=== PATIENT | female | born 1970 | race Caucasian/White ===

== ENCOUNTER 2025-01-26 08:46 | Inpatient (IN) ==
--- NOTE | 2025-01-20 20:38 | Anesthesiology Consultation ---
Date of Service January 20, 2025 Assessment & Plan (1) Encounter for pre-operative examination: - Exam and advise: Patient seen at [facility] 01/05/25 at surgeon request for possible upcoming cervical spine surgery (with hardware). Surgeon requested evaluation by anesthesia prior to officially booking surgery in order to determine if anesthesia felt that patient was not a candidate to be done at [facility] from their perspective. Patient reports history of apnea and cardiac arrest while under anesthesia. Indicates that most recent perioperative cardiac rest was remote (many years ago, back surgery) and she since had Right shoulder arthroscopy done at [facility] under [place] without issue (10/01/17; anesthesia records scanned into chart). Patient has received clearance for surgery and risk assessment provided from both cardiology and PCP (elaborated below). Case reviewed with Dr. Martinez. He feels patient okay to be scheduled at [facility]. Patient made aware; surgeon's office notified. - PCP visit (12/24/24): "She has a history of anesthesia complications, including episodes of decreased or stopped breathing during procedures, necessitating resuscitation. She also experienced a stroke two years ago, resulting in vision loss in her right eye, and has lost sensation in four fingers. A loop recorder was implanted due to a past episode of atrial fibrillation, scheduled for removal on January 04... Patient is high-risk for complications to surgery. Her cardiac risk index is high given up to a 7.9% risk but given her history of apnea and cardiac arrest under anesthesia I would estimate her risk to be much higher. However she currently has a functional capacity of around 4 Mets and reports that she had a stress test within the year that was normal. It is possible that most of her current risk would be from anesthesia and not directly from a cardiac standpoint. However she has also been undergoing evaluation with a loop recorder with Cardiology. Her other medical conditions like her diabetes seemed to be well-controlled enough to not cause any additional risk. Risk of the procedure itself would be intermediate. Patient's MRI shows significant spinal compression and the risk of not having her surgery also carries with it significant morbidity. I will defer her ultimate cardiac clearance to Cardiology and she reports she has a visit with them next week. If cleared by Cardiology I highly recommend consult with anesthesia to obtain their clearance as well and to potentially plan for ways to avoid previous cardiac arrest. Addendum: Patient has been seen and cleared by Cardiology for surgery. She is cleared with surgery but I highly recommend consult with anesthesia prior to surgery due to history of reaction to anesthesia." - Cardiology visit (12/29/24): "..Nonocclusive coronary artery disease ([facility] 2013), rheumatic mitral valve regurgitation, s/p ILR 08/03/2022 (after cerebellar infarction with unremarkable CAITIE).. Based on the RCRI perioperative risk calculator, using an ASA of 1, this patient's estimated risk for a myocardial infarction or cardiac arrest, intraoperatively or up to 30 days postop is 6.0%. Therefore, this patient is at low (less than 1%) risk for any rosalia-operative cardiac complications.. Patient will have upcoming echocardiogram performed for monitoring of her mitral valve regurgitation. She remains asymptomatic. This does not need to be done prior to spinal cord surgery.. Proceed to surgery.. Most recent ischemic evaluation was a negative stress test in 2022" - Cardiology note (01/01/25): "Patient is cleared for scheduled surgery per Dr. Daniels" - Check BSG DOS - GLP-1 medication instructions: Patient informed by PAT to stop 7 days prior to surgery- voiced understanding. DOS 01/26. Advised last dose to be 01/14. - Infectious disease screening: Per assessment on 01/18/25- No known recent infectious disease contacts or current infectious disease symptoms. Chart Review Chart Review: Acceptable Risk for Surgery (pending evaluation DOS) and Patient NOT seen in Pre Admission Testing History Surgery Operation Date: 01/26/25 12:25 Proposed Procedures p C6 Corpectomy, C4-C5 Anterior Cervical Discectomy and Fusion, C4-C7 Fusion, Spinal Cord Monitoring - Kadeem Villareal, Height/Weight Height: 5 ft 3 in Weight: 77.111 kg Allergies Allergy/AdvReac Type Severity Reaction Status Date / Time Carbapenems Allergy Intermediate Rash Verified 01/18/25 14:03 Cephalosporins Allergy Intermediate Rash Verified 01/18/25 14:03 metoprolol Allergy Intermediate Gastrointestinal Verified 01/18/25 14:03 Upset Penicillins Allergy Intermediate Hives, N/V Verified 01/18/25 14:03 Sulfa (Sulfonamide Allergy Intermediate Gastrointestinal Verified 01/18/25 14:03 Antibiotics) Upset, N/V amoxicillin Allergy Hives, N/V Verified 01/18/25 14:03 codeine Allergy Rash Verified 01/18/25 14:03 metformin Allergy Rash Verified 01/18/25 14:03 nitroglycerin Allergy Anaphylaxis, Verified 01/18/25 14:03 "Cardiac arrest" listed in [facility] records [id number] Reductase Allergy Verified 01/18/25 14:03 Inhibitor lisinopril AdvReac stroke Verified 01/18/25 14:03 morphine AdvReac Vomiting Verified 01/18/25 14:03 NSAIDS (Non-Steroidal AdvReac Heart Verified 01/18/25 14:03 Anti-Inflamma disease and HTN losartan AdvReac blind in Uncoded 01/18/25 14:03 rt eye Medications Home Medications Medication Instructions Recorded Confirmed Last Taken aspirin 81 mg tablet,delayed 81 mg PO QAM 09/26/22 01/18/25 Unknown release (Adult Low Dose Aspirin) lancets 30 gauge ([employer] [place] Del[place] #100 ea 10/03/22 02/11/23 Unknown Lancets) blood sugar diagnostic ([employer] [place] #100 ea 10/22/22 02/11/23 Unknown Verio test strips) blood-glucose meter ([employer] [place] #1 ea 10/22/22 02/11/23 Unknown Verio Flex Start kit) potassium chloride 20 mEq 20 meq PO BID #180 tabs 04/19/23 01/18/25 Unknown tablet,extended release gabapentin 300 mg capsule 300 mg PO TID 01/05/25 01/18/25 Unknown lisinopril 10 mg tablet 10 mg PO QAM 01/05/25 01/18/25 Unknown ondansetron 4 mg disintegrating 4 mg PO Q8H PRN Nausea 01/05/25 01/18/25 Unknown tablet Medical Marijuana 1 dose PO HS 01/18/25 01/18/25 Unknown levothyroxine 100 mcg tablet 100 mcg PO QAM 01/18/25 01/18/25 Unknown (Synthroid) semaglutide 0.25 mg or 0.5 mg (2 0.25 mg subcut WK 01/18/25 01/18/25 Unknown mg/3 mL) subcutaneous pen injector (Ozempic) Past Medical History Medical History Benign essential hypertension Per records Cervical pain (neck) numbness in fingers, ROM limited in all directions Chronic GERD Per records Coronary artery disease Nonocclusive CAD per 2013 cardiac cath (20-30% ostial LAD, 10-20% LCX, 30% prox ramus, 20% RCA) Per scanned records Diabetes mellitus just Ozempic Diastolic dysfunction Per records History of non-ST elevation myocardial infarction (NSTEMI) 2013 (Per scanned records) History of stroke 2022- cerebellar infarction > x3 total, unknown cause, one reason for possible due to lisinopril, neck issues? resulting blindness right eye medial retinal occulsion History of transesophageal echocardiography (CAITIE) Hypercholesterolemia Per records Hypothyroidism Per records Mitral valve regurgitation follows with Dr. Ayon with [facility] NSVT (nonsustained ventricular tachycardia) PCP records note, "A loop recorder was implanted due to a past episode of atrial fibrillation" > no other mention of a. fib hx per records (including available cardiac records); cardio notes loop recorder under NSVT hx cardiomyopathy Per records Past Family History Family History Mother Diabetes Heart disease Hypertension Lung disease COPD (chronic obstructive pulmonary disease) Father Diabetes Heart disease Hypertension Colonic polyp Stroke Brother Diabetes Gallbladder disease Heart disease Hypertension Lung disease Seizures Other Myocardial infarction Denies family history of Ovarian cancer Prostate cancer Alzheimer disease Bipolar disorder Dementia Depression Kidney disease Breast cancer Lung cancer Colorectal cancer Asthma Past Surgical History Surgical History (Updated 01/20/25 @ 20:36 by Maya Manzano) History of anesthesia reaction She has a history of anesthesia complications, including episodes of decreased or stopped breathing during procedures, necessitating resuscitation. >>*Exam and advise: Patient seen at [facility] 01/05/25 at surgeon request for possible upcoming cervical spine surgery (with hardware). Surgeon requested evaluation by anesthesia prior to officially booking surgery in order to determine if anesthesia felt that patient was not a candidate to be done at [facility] from their perspective. Patient reports history of apnea and cardiac arrest while under anesthesia. Indicates that most recent perioperative cardiac rest was remote (many years ago, back surgery) and she since had Right shoulder arthroscopy done at [facility] [place] without issue (10/01/17; anesthesia records scanned into chart). Patient has received clearance for surgery and risk assessment provided from both cardiology and PCP (elaborated below). Case reviewed with Dr. Martinez. He feels patient okay to be scheduled at [facility]. Patient made aware; surgeon's office notified. History of appendectomy 1979 History of back surgery Multiple (2006, 2008, 2009) > fusions in lumbar and thoracic History of cardiac cath 2013 > no stents History of section 1990, 2000 History of loop recorder removed at [facility] nothing ever discovered on it History of lumbar laminectomy History of shoulder surgery Right (2018) History of tubal ligation 2000 Hx of cholecystectomy 2000 Hx of surgical procedure [facility] 2006 > during a spinal tap, fell off bed and got a broken jaw/ broken back from the fall Social History Smoking Status: Current every day smoker Smoking cigarettes per day: 1/2 ppd > advised npo Do You Dip or Chew Tobacco: No Hx Alcohol Use: No Hx Substance Use: Yes substance use type: marijuana Substance Use Type Other:: med card at Lab Results Anesthesia Preop Results Results Anesthesia Widget: WBC 10.32 K/ul (4.8-10.8) 01/11/25 Hgb 17.0 g/dl (12.0-16.0) H 01/11/25 Hct 50.7 % (37.0-47.0) H 01/11/25 Plt 322 K/uL (130-400) 01/11/25 Na 138 mmol/L (136-145) 01/11/25 K 4.2 mmol/L (3.5-5.1) 01/11/25 Cl 102 mmol/L (98-107) 01/11/25 CO2 29 mmol/L (21-32) 01/11/25 BUN 12 mg/dl (6-23) 01/11/25 Creat 0.94 mg/dl (0.6-1.2) 01/11/25 Glucose Level 234 mg/dl (70-99(Fasting)) H 01/11/25 PT 10.8 Seconds (9.0-12.0) 01/11/25 PTT 27 Seconds (21-31) 01/11/25 INR 1.0 (0.9-1.1) 01/11/25 Urine Color Yellow 01/11/25 Urine Appearance Clear (Clear) 01/11/25 Urine pH 6.0 (4.5-7.5) 01/11/25 Urine Specific [place] 1.021 (1.000-1.030) 01/11/25 Urine Protein Negative (Negative) 01/11/25 Urine Glucose (UA) 2+ (Negative) H 01/11/25 Urine Ketones Trace (Negative) H 01/11/25 Urine Blood Negative (Negative) 01/11/25 Urine Nitrite Negative (Negative) 01/11/25 Urine Bilirubin Negative (Negative) 01/11/25 Urine Urobilinogen Negative (Negative) 01/11/25 Urine Leukocyte Esterase Negative (Negative) 01/11/25 Blood Type O Positive 01/11/25 Antibody Screen NEGATIVE 01/11/25 Testing Laboratory Results Urine culture (01/11/25): probable skin mary Electrocardiogram Date: 12/29/24 NSR at 85bpm. NS TWA. Echocardiogram Date: 05/14/23 EF 60-65%. Normal wall motion. Grade I DD. Mild AR. Moderate MR. RVSP/PASP <30mmhg. Stress Test Date: 2022 "negative stress test in 2022" per 12/29/24 cardiology office visit note (have not received official stress test report) Other Testing ILR device check Date: 08/07/24 "no episodes of tachy, pauses, bradycardia or AT/AF" per 12/29/24 cardiology office visit note (have not received official report).
[~2025-01-26 08:46] MED LIST: DEXAMETHASONE SOD INJ 4 MG/ML VIAL ONE; LIDOCAINE 2% 2 ML VIAL/AMP(20MG/ML) INFIL ONE; MIDAZOLAM HCL 1 MG/ML 2ML VIAL ONE; ONDANSETRON INJ 2 MG/ML 2 ML VIAL ONE; PROPOFOL IV EMULSION 10 MG/ML 20 ML VIAL IV ONE; ROCURONIUM BROMIDE 10 MG/ML 5 ML VIAL IV ONE
[2025-01-26] MEDS: LR 15ML/HR IV SCH (09:10)
[2025-01-26] MEDS: LR 60ML/HR IV SCH (09:16)
[2025-01-26] MEDS: VANCOMYCIN HCL 1,250 MG in SODIUM CHLORIDE 0.9% 250 ML IV SCH (09:16)
[2025-01-26] MEDS: GABAPENTIN 900 MG DOSE PO SCH (09:17)
[2025-01-26] MEDS: ACETAMINOPHEN 500 MG TAB PO SCH (09:17)
[2025-01-26] MEDS ORDERED: ATROPINE SULFATE 0.1 MG/ML 10ML SYR IV PRN (11:16)
[2025-01-26] MEDS ORDERED: DROPERIDOL 5 MG/2 ML VIAL IV PRN (11:16)
--- NOTE | 2025-01-26 11:27 | History & Physical Bridge Note ---
Date of Service January 26, 2025 History & Physical Bridge Note I have examined the patient, reviewed the History & Physical and in the interval since the performance of the History & Physical I have noted the following changes of clinical significance: no changes noted
--- NOTE | 2025-01-26 11:29 | History & Physical Report ---
Date of Service January 26, 2025 Assessment & Plan (1) Myelopathy concurrent with and due to spinal stenosis of cervical region: Plan: c5 corpectomy, C4-5 anterior cervical discectomy and fusion, C4-C7 fusion History of Present Illness Chief Complaint: Neck and bilateral arm pain Primary Care Provider: SANTI JONES This is a 54-year-old female who presents with severe neck and arm symptoms. She has evidence of severe cord compression is here for urgent decompression fusion. Allergies Allergy/AdvReac Type Severity Reaction Status Date / Time Carbapenems Allergy Intermediate Rash Verified 01/26/25 08:41 Cephalosporins Allergy Intermediate Rash Verified 01/26/25 08:41 metoprolol Allergy Intermediate Gastrointestinal Verified 01/26/25 08:41 Upset Penicillins Allergy Intermediate Hives, N/V Verified 01/26/25 08:41 Sulfa (Sulfonamide Allergy Intermediate Gastrointestinal Verified 01/26/25 08:41 Antibiotics) Upset, N/V amoxicillin Allergy Hives, N/V Verified 01/26/25 08:41 codeine Allergy Rash Verified 01/26/25 08:41 metformin Allergy Rash Verified 01/26/25 08:41 nitroglycerin Allergy Anaphylaxis, Verified 01/26/25 08:41 "Cardiac arrest" listed in S records [id number] Reductase Allergy Verified 01/26/25 08:41 Inhibitor lisinopril AdvReac stroke Verified 01/26/25 08:41 morphine AdvReac Vomiting Verified 01/26/25 08:41 NSAIDS (Non-Steroidal AdvReac Heart Verified 01/26/25 08:41 Anti-Inflamma disease and HTN losartan AdvReac blind in Uncoded 01/26/25 08:41 rt eye Home Medications Medication Instructions Recorded Confirmed Type aspirin 81 mg tablet,delayed 81 mg PO QAM 09/26/22 01/26/25 History release (Adult Low Dose Aspirin) lancets 30 gauge ([employer] Delica #100 ea 10/03/22 02/11/23 Rx Lancets) blood sugar diagnostic (OneTouch #100 ea 10/22/22 02/11/23 Rx Verio test strips) blood-glucose meter ([employer] #1 ea 10/22/22 02/11/23 Rx Verio Flex Start kit) potassium chloride 20 mEq 20 meq PO BID #180 tabs 04/19/23 01/26/25 Rx tablet,extended release gabapentin 300 mg capsule 300 mg PO TID 01/05/25 01/26/25 History lisinopril 10 mg tablet 10 mg PO QAM 01/05/25 01/26/25 History ondansetron 4 mg disintegrating 4 mg PO Q8H PRN Nausea 01/05/25 01/26/25 History tablet Medical Marijuana 1 dose PO HS 01/18/25 01/26/25 History levothyroxine 100 mcg tablet 100 mcg PO QAM 01/18/25 01/26/25 History (Synthroid) semaglutide 0.25 mg or 0.5 mg (2 0.25 mg subcut WK 01/18/25 01/26/25 History mg/3 mL) subcutaneous pen injector (Ozempic) Past Med/Surg History Problem List (Updated 01/26/25 @ 11:29 by Kadeem Villarael DO) 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 Ayon with [facility] NSVT (nonsustained ventricular tachycardia) PCP records note, "A loop recorder was implanted due to a past episode of atrial fibrillation" > no other mention of a. fib hx per records (including available cardiac records); cardio notes loop recorder under NSVT hx History of stroke 2022- cerebellar infarction > x3 total, unknown cause, one reason for possible due to lisinopril, neck issues? resulting blindness right eye medial retinal occulsion History of non-ST elevation myocardial infarction (NSTEMI) 2013 (Per scanned records) Diastolic dysfunction Per records cardiomyopathy Per records Coronary artery disease Nonocclusive CAD per 2014 cardiac cath (20-30% ostial LAD, 10-20% LCX, 30% prox ramus, 20% RCA) Per scanned records Chronic GERD Per records Hypothyroidism Per records Benign essential hypertension Per records Hypercholesterolemia Per records Diabetes mellitus just Ozempic Surgical History History of anesthesia reaction She has a history of anesthesia complications, including episodes of decreased or stopped breathing during procedures, necessitating resuscitation. >>*Exam and advise: Patient seen at [facility] 01/05/25 at surgeon request for possible upcoming cervical spine surgery (with hardware). Surgeon requested evaluation by anesthesia prior to officially booking surgery in order to determine if anesthesia felt that patient was not a candidate to be done at [facility] from their perspective. Patient reports history of apnea and cardiac arrest while under anesthesia. Indicates that most recent perioperative cardiac rest was remote (many years ago, back surgery) and she since had Right shoulder arthroscopy done at [facility] under [place] without issue (10/01/17; anesthesia records scanned into chart). Patient has received clearance for surgery and risk assessment provided from both cardiology and PCP (elaborated below). Case reviewed with Dr. Martienz. He feels patient okay to be scheduled at [facility]. Patient made aware; surgeon's office notified. History of lumbar laminectomy Hx of surgical procedure [facility] [place] > during a spinal tap, fell off bed and got a broken jaw/ broken back from the fall History of loop recorder removed at [facility] 01/11/25 [facility] > nothing ever discovered on it History of cardiac cath 2013 > no stents History of shoulder surgery Right (2018) History of back surgery Multiple (2006, 2008, 2008) > fusions in lumbar and thoracic History of tubal ligation 2000 History of section 2000 Hx of cholecystectomy 2000 History of appendectomy 1979 Family History Mother Diabetes Heart disease Hypertension Lung disease COPD (chronic obstructive pulmonary disease) Father Diabetes Heart disease Hypertension Colonic polyp Stroke Brother Diabetes Gallbladder disease Heart disease Hypertension Lung disease Seizures Other Myocardial infarction Denies family history of Ovarian cancer Prostate cancer Alzheimer disease Bipolar disorder Dementia Depression Kidney disease Breast cancer Lung cancer Colorectal cancer Asthma Social History (Updated 09/26/22 @ 11:40 by ANN Baptiste) Smoking Status: Current every day smoker Tobacco Type: Cigarettes Age Started Using Tobacco: 26; packs per day: 0.50; Cigarettes Per Day: 1/2 ppd > advised npo; Second Hand Exposure: No; Do You Dip or Chew Tobacco: No; Tobacco Cessation Education Requested by Patient: No Hx Alcohol Use: No Hx Substance Use: Yes Prescribed Medications: Marijuana Substance Use Type Other:: med card at Preferred Language: Barbadian Communication Ability: Effective Visual Impairment: Blindness Hearing Ability: Normal Reptile Farmer Required: No Beliefs That Will Affect Care: None marital status: Legally Current Living Situation: Alone current occupational status: disabled How many Children do You have: 2 Other Information That Helps Us Care for You: No Feels Safe at Home: Yes Safety Concerns: Feels Safe At This Time Childhood Exposure to Second-Hand Smoke: Yes Dental Care, Regularly: No Seatbelt Use: always Sunscreen Use: Yes Assistive Devices: Glasses Physical Exam Physical Exam: Patient is alert and oriented Heart regular rhythm Lungs clear Results & Data Results & Data Vital Signs (Past 12 Hours) Vital Signs Temp Pulse Resp BP Pulse Ox O2 Del Method 01/26/25 08:51 36.8 C 82 20 171/90 H 96 Room Air
[2025-01-26] MEDS ORDERED: KETAMINE HCL 10MG/ML SYR ONE (12:07)
[2025-01-26] MEDS ORDERED: HYDROmorphone INJ 2 MG/ML SYR/VIAL ONE (12:08)
[2025-01-26] MEDS ORDERED: DEXAMETHASONE SOD INJ 4 MG/ML VIAL ONE (12:11)
[2025-01-26] MEDS ORDERED: diphenhydrAMINE 50 MG/ML VIAL ONE (12:34)
[2025-01-26] MEDS ORDERED: ESMOLOL HCL INJ 10 MG/ML 10ML VIAL IV ONE (12:43)
[2025-01-26] MEDS ORDERED: SUGAMMADEX SODIUM 200 MG/2 ML VIAL IV ONE (13:43)
[2025-01-26] MEDS: ceFAZolin 330 MG/ML 1 GM VIAL ONE (13:43)
[2025-01-26] MEDS: FLOSEAL HEMOSTATIC MATRIX 10ML TOP ONE (13:43)
--- NOTE | 2025-01-26 13:48 | Operative Report ---
Post Operative Report Pre & Post Diagnosis Operation Date: 01/26/25 10:05 Pre-Op Diagnosis: Myelopathy concurrent with and due to spinal stenosis of cervical region Post-Op Diagnosis: Myelopathy concurrent with and due to spinal stenosis of cervical region I identified the patient and participated in the time-out.: Yes Procedure Operation Date: 01/26/25 10:05 Actual Procedures #1 anterior cervical corpectomy of C5 with bilateral foraminotomies. #2 anterior cervical arthrodesis C4-C6. #3 placement of Spira 23 mm cage C4-C6. #4 placement locally harvested morselized autograft combined with os design bone graft and interbody cage. #5 application of K2 and plate screws from C4-C6. Surgeon Kadeem Villareal, Cartography Technician Mana Kerr Estimated Blood Loss 50 Findings Consistent with Post-Op Diagnosis Specimens None Indications This is a 54-year-old female who presents with much diagnosis is here for surgical decompression. Description of Procedure Patient was met with identified informed consent obtained. Patient was then taken to the operative suite underwent intubation placed in the supine position on the Charles table the head in the [place] pumper head. All bony promises well-padded eyes inspected to ensure no external pressure placed upon them. This point the anterior cervical spine was prepped and draped in a sterile fashion. With the assistance of fluoroscopy identified the C5-C6 disc space and a transverse incision was placed along the right anterior aspect of the cervical spine overlying his region. Blunt dissection with the assistance of Bovie cautery was formed down to and exposing the C4-5 and C5-6 disc spaces. Self- retaining retractors placed. Then performed a complete discectomy of C4-C5 out to the uncovertebral joints bilaterally followed by C5-C6. [place] distracting pins were then placed in C4 and C6 to distract across the C5 vertebral body. A complete corpectomy of C5 was then performed including bilateral foraminotomies and removing all disc fragments adhered to the canal. I undercut the superior endplate of C6 to remove all disc material that had migrated posteriorly to the body of C6. My goal is to avoid a C6-C7 fusion if possible as this disc is very healthy on imaging and alignment. After complete decompression the endplates were burred to subcortical bleeding bone and a 23 mm spiral cage filled with os design bone graft and local autograft tapped in position. Distracting apparatus was removed. Indicated to them plate and screws applied with the assistance of fluoroscopy. The incision was then copiously irrigated explored to ensure no damage to surrounding structures or remaining bleeding. 10 round JEMIMA drain inserted. The incision was then closed with 2 Vicryl in the fashion of 4 Monocryl for final skin closure. Steri-Strips sterile dressing placed. Patient waken taken to PACU in stable condition. Please note spinal cord monitoring was utilized out the procedure no changes noted. Mana Kerr was present at the entire procedure involved the patient positioning complex portion of the surgery and final skin closure. I attest to the content of the Intraoperative Record and any orders documented therein. Any exceptions are noted below.
[2025-01-26] MEDS ORDERED: NALOXONE HCL 0.4 MG/1 ML VIAL/CARP IV PRN (14:06)
[2025-01-26] MEDS ORDERED: MAGNESIUM HYDROXIDE SUSP 30 ML UDC PO PRN (14:06)
[2025-01-26] MEDS ORDERED: PROMETHAZINE 12.5 MG/50.5 ML BAG IV PRN (14:06)
[2025-01-26] MEDS ORDERED: dexAMETHasone 8 MG in SYRINGE 0 ML IV PRN (14:06)
[2025-01-26] MEDS ORDERED: ALUMINUM/MAGNESIUM SUSP 30 ML UDC PO PRN (14:06)
[2025-01-26] MEDS ORDERED: DO NOT ADMINISTER PNEUMOCOCCAL VACCINE PRN (14:06)
[2025-01-26] MEDS ORDERED: RACEPINEPHRINE 2.25% NEBU SOLN 0.5 ML VIAL INH PRN (14:06)
[2025-01-26] MEDS ORDERED: LORazepam 0.5 MG TAB PO PRN (14:06)
[2025-01-26] MEDS ORDERED: DO NOT ADMINISTER FLU VACCINE PRN (14:06)
[2025-01-26] MEDS ORDERED: METOCLOPRAMIDE HCL INJ 5 MG/ML 2 ML VIAL IV PRN (14:06)
[2025-01-26] MEDS ORDERED: FAMOTIDINE 20 MG TAB PO PRN (14:06)
[2025-01-26] MEDS ORDERED: PHARMACY GLYCEMIC MGMT CONSULT PRN (14:06)
[2025-01-26] MEDS ORDERED: ONDANSETRON INJ 2 MG/ML 2 ML VIAL IV PRN (14:06)
[2025-01-26] MEDS ORDERED: ACETAMINOPHEN 1,000 MG/100 ML VIAL IV PRN (14:06)
[2025-01-26] MEDS ORDERED: ONDANSETRON 4 MG OD TAB PO PRN (14:06)
[2025-01-26] MEDS ORDERED: SOD PHOSPHATE/SOD BIPHOSPHATE ENEMA 132 ML BTL PR PRN (14:06)
[2025-01-26] MEDS: ONDANSETRON INJ 2 MG/ML 2 ML VIAL IV PRN (14:39)
[2025-01-26] MEDS: HYDROmorphone INJ 2 MG/ML SYR/VIAL IV PRN (14:40)
[2025-01-26] MEDS ORDERED: CARBOHYDRATES FOR HYPOGLYCEMIA PO PRN (14:45)
[2025-01-26] MEDS ORDERED: GLUCOSE 10 TAB/TUBE PO PRN (14:45)
[2025-01-26] MEDS ORDERED: GLUCAGON FOR INJ 1 MG VIAL SQ PRN (14:45)
[2025-01-26] MEDS ORDERED: DEXTROSE 50% 50 ML SYRINGE IV PRN (14:45)
[2025-01-26] MEDS ORDERED: GLUCOSE 40% GEL 15 GM TUBE PO PRN (14:45)
--- NOTE | 2025-01-26 14:45 | Fluoroscopy Report ---
FL cervical 2-3V CLINICAL HISTORY: C4-C7 ACDF COMPARISON STUDY: None FLUOROSCOPY TIME: 21 seconds FLUOROSCOPY IMAGES: 3 EXPOSURE DOSE: 4 mGy FINDINGS: Fluoroscopy was provided for lower cervical metallic fusion. IMPRESSION: Intraoperative fluoroscopy. ACT 112: Negative or not required by law. Electronically signed by: Robert Tidwell M.D. 01/26/2025 2:44 PM
--- NOTE | 2025-01-26 14:46 | Pharmacy Report ---
Pharmacy Glycemic Short Note 2 - Date of Service January 26, 2025 - Glycemic Short BSG Results (Last 24 hours): 01/26/25 01/26/25 08:46 14:21 POC Glucose 255 H 201 H OUTPATIENT ANTIDIABETIC REGIMEN: * Semaglutide 0.5 mg SC weekly HbA1c: reordered for 01/27/25 ASSESSMENT: * TW is a 54 year old female POD #0 s/p spinal surgery * Received 8 mg IV dexamethasone x 2 doses in OR * Ordered dexamethasone 8 mg IV q8h postoperatively * Preop blood sugar of 255 mg/dL and postop blood sugar of 201 mg/dL PLAN FOR INPATIENT GLYCEMIC CONTROL: * Hold outpatient oral diabetes medications * Basal insulin * Lantus 30 units SC x 1 * Lantus 0-10 units SC HS (see EHR for details) * Bolus insulin * NovoLog per scale ACHS or Q6hrs while NPO * Goal Range: Low 110 mg/dL - High 140 mg/dL * Correction Factor: 20 mg/dL/unit * Nutritional / Prandial insulin per carb ratio of 1 unit per 7 grams CHO consumed
--- NOTE | 2025-01-26 15:14 | Anesthesiology Progress Note ---
Date of Service January 26, 2025 Anesthesia Post Procedure Vital Signs Vital Signs: Temp Pulse Pulse Resp BP Pulse Ox O2 Del Method 01/26/25 15:05 80 15 145/74 H 96 Nasal Cannula 01/26/25 14:55 80 15 150/73 H 96 Nasal Cannula 01/26/25 14:45 81 15 146/77 H 96 Oxymask 01/26/25 14:35 80 15 147/78 H 96 Oxymask 01/26/25 14:25 82 15 152/88 H 95 Oxymask 01/26/25 14:18 36.1 C L 89 15 159/84 H 94 Oxymask 01/26/25 08:51 36.8 C 82 20 171/90 H 96 Room Air O2 Flow Rate 01/26/25 15:05 4 01/26/25 14:55 4 01/26/25 14:45 5 01/26/25 14:35 5 01/26/25 14:25 5 01/26/25 14:18 5 01/26/25 08:51 Pain Intensity Upper Neck: Pain Intensity: 6 Transfer of Care Handoff Completed per policy Notes Mental Status: alert / awake / arousable Patient Amnestic to Procedure: Yes Nausea / Vomiting: adequately controlled Pain: adequately controlled Airway Patency, RR, SpO2: stable & adequate BP & HR: stable & adequate Hydration State: stable & adequate Anesthetic Complications: no major complications apparent and Pt Satisfied with anesthetic care
[2025-01-26] MEDS: INSULIN ASPART PER UNIT CHARGE SC SCH (16:10)
[2025-01-26] MEDS: CeleBREX 200 MG CAP PO SCH (16:13)
[2025-01-26] MEDS: LACTATED RINGER'S 1,000 ML IV SCH (16:26)
[2025-01-26] MEDS: GABAPENTIN 300 MG CAP PO STA (16:39)
--- NOTE | 2025-01-26 17:06 | Hospitalist Consultation ---
Date of Consultation January 26, 2025 Assessment & Plan (1) Myelopathy concurrent with and due to spinal stenosis of cervical region: Carly is a 53-year-old female with a past medical history of cardiomyopathy, nonobstructive CAD, CVA, cholecystectomy, asthma who presented for scheduled cervical spinal surgery 2/2 cervical spinal stenosis with myelopathy. We are consulted for postoperative management Cervical spinal stenosis s/p surgical intervention 01/26/2025 s/p cervical corpectomy, arthrodesis, cage placement and plate/screw fixation 50 cc estimated blood loss, no complications Reviewed VTE risk.? Increased risk with tobacco use, BMI, and possible prior thrombus although no DVT/PE. She is also at increased risk of bleeding complications with her cervical surgery. Reviewed with primary team, will have evaluation of drains bleeding risk morning of 01/27 and likely start Lovenox 30- 40 mg subcu daily for prevention when bleeding risk is acceptable. Immediately postop risk of bleeding complications outweighs benefit Nonobstructive CAD, NSVT, MVR, history of nonischemic cardiomyopathy Cardiac cath 2013 with nonocclusive disease Echo 2022: EF 60 to 65%, grade 1 diastolic dysfunction. Moderate MR. Aspirin 81 mg daily continued Resume lisinopril 01/27 Hx NSVT, Syncope Had an episode of NSVT for which she was trialed on a beta-yfn but was intolerant of this and was discontinued. Had a loop recorder placed in 2022. This was reviewed at cardiology visit 12/2024 no episodes of tacky arrhythmia/pauses/bradycardia/AT/AF per cardiology report. Loop recorder to be removed. Was recommended to hold aspirin 3 days prior to procedure otherwise continue medications with low perioperative risk. Aspirin continued No recurrent symptoms. If concern for syncope/presyncope, or tachycardia develop transfer to telemetry Preop EKG: Normal sinus rhythm, QTc 433, no territorial ST/T wave acute changes Hyperlipidemia Intolerance to statins, Zetia, PCSK9 inhibitors Continue follow-up with cardiology and outpatient management. LDL is above goal History of syncope S/p loop recorder f/u with cardiovascular services. Had been treated transiently with a beta-yfn but felt poorly, this was started for a history of NSVT. Was discontinued due to intolerance. 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 Patient reports that she has had extensive follow-up and workup, was not recommended for blood thinners CTA of the head and neck has not shown any hemodynamically significant st enoses Hypothyroidism Continue Synthroid Type II DM Hyperglycemic following surgery and received dexamethasone 8 mg. BSG 279. Initially refused insulin, discussed risk of poor wound healing and infection with high blood sugars at bedside. Also discussed risk of increasing blood sugars w/ dexamethasone tx. On shared decision making she is agreeable to insulin while inpatient. Glycemic consult following Currently on Lantus 0-10 units at bedtime, SSI goal [id number], CF 20, CR 1-7 Adjustment per placement consult Heart healthy, DM2 diet A1c pending Home semaglutide held DVT prophylaxis: SCDs, chemicalppx when bleeding risk acceptable Diet: Heart Healthy, DM2 (2) History of stroke: (3) Diabetes mellitus: (4) Hypothyroidism: (5) Benign essential hypertension: (6) Chronic GERD: (7) Coronary artery disease: History of Present Illness Attending Physician: Kadeem Villareal, DO History of Present Illness Carly is a 53-year-old female with a past medical history of cardiomyopathy, nonobstructive CAD, CVA, cholecystectomy, asthma who presented for scheduled cervical spinal surgery 2/2 cervical spinal stenosis with myelopathy. We are consulted for postoperative management Tali is seen at the bedside with her present. She was having bilateral upper extremity paresthesias and arm weakness that led to her decompression surgery. She feels her strength is better postoperatively. She does have some pain at her surgical site which radiates slightly to each side towards her shoulders. Denies sensory loss. She denies chest pain chest pressure and shortness of breath. Does have a little bit of a sore throat following extubation. Denies wheezing, difficulty breathing, no difficulty swallowing secretions. No wheezing, she is a smoker. Declines nicotine patch. Reports good exertional capacity with no recent syncope. Was doing well enough that her loop recorder was removed. No issues since this. Loop recorder site is well-healing. Declined insulin while inpatient as she has multiple allergies and did not want to risk another 1. Did discuss the increased rates of poor wound healing and postoperative infection with poor glycemic control following surgery. Shared risk/benefits, she is agreeable to basal bolus insulin while inpatient although does not wish to be discharged on this. She has a history of multiple strokes, and right vision loss due to this. She was noted to have a AV thrombus in 2021 which was not seen on repeat echocardiogram and follow-up. Reports she has followed and has extensive workup with [facility] [place] and cardiology for this, and reports she does not need and she does not take any blood thinners. She takes a daily aspirin. Denies history of DVT/PE. CTA of her head and neck did not show any significant stenoses associated with her CVA. Medical History: Reviewed Medications: Reviewed Surgical History: Reviewed Family history: Reviewed Allergies: Reviewed, extensive allergies as noted in history. Anaphylactic allergy to nitroglycerin. Hives to penicillin, cephalosporins, carbapenems. Nausea vomiting team morphine and codeine. Intolerant to statins in the past. Social History: Tobacco use Code Status: Full code Allergies Allergy/AdvReac Type Severity Reaction Status Date / Time Carbapenems Allergy Intermediate Rash Verified 01/26/25 08:41 Cephalosporins Allergy Intermediate Rash Verified 01/26/25 08:41 metoprolol Allergy Intermediate Gastrointestinal Verified 01/26/25 08:41 Upset Penicillins Allergy Intermediate Hives, N/V Verified 01/26/25 08:41 Sulfa (Sulfonamide Allergy Intermediate Gastrointestinal Verified 01/26/25 08:41 Antibiotics) Upset, N/V amoxicillin Allergy Hives, N/V Verified 01/26/25 08:41 codeine Allergy Rash Verified 01/26/25 08:41 metformin Allergy Rash Verified 01/26/25 08:41 nitroglycerin Allergy Anaphylaxis, Verified 01/26/25 08:41 "Cardiac arrest" listed in [facility] records [id number]-[id number]-ZsU Reductase Allergy Unknown Verified 01/26/25 14:23 Inhibitor lisinopril AdvReac stroke Verified 01/26/25 08:41 losartan AdvReac Unknown Verified 01/26/25 14:23 morphine AdvReac Vomiting Verified 01/26/25 08:41 NSAIDS (Non-Steroidal AdvReac Heart Verified 01/26/25 08:41 Anti-Inflamma disease and HTN Home Medications Medication Instructions Recorded Confirmed Type aspirin 81 mg tablet,delayed 81 mg PO QAM 09/26/22 01/26/25 History release (Adult Low Dose Aspirin) lancets 30 gauge (Cass ArtTouch Delcale #100 ea 03/29/23 08/07/23 Rx Lancets) blood sugar diagnostic (OneTouch #100 ea 10/22/22 02/11/23 Rx Verio test strips) blood-glucose meter (OneTouch #1 ea 10/22/22 02/11/23 Rx Verio Flex Start kit) potassium chloride 20 mEq 20 meq PO BID #180 tabs 04/19/23 01/26/25 Rx tablet,extended release gabapentin 300 mg capsule 300 mg PO TID 01/05/25 01/26/25 History lisinopril 10 mg tablet 10 mg PO QAM 01/05/25 01/26/25 History ondansetron 4 mg disintegrating 4 mg PO Q8H PRN Nausea 01/05/25 01/26/25 History tablet Medical Marijuana 1 dose PO HS 01/18/25 01/26/25 History levothyroxine 100 mcg tablet 100 mcg PO QAM 01/18/25 01/26/25 History (Synthroid) semaglutide 0.25 mg or 0.5 mg (2 0.25 mg subcut WK 01/18/25 01/26/25 History mg/3 mL) subcutaneous pen injector (Ozempic) Patient History Medical History (Updated 01/26/25 @ 11:29 by Kadeem Villareal DO) History of transesophageal echocardiography ([facility]) Cervical pain (neck) numbness in fingers, ROM limited in all directions Mitral valve regurgitation follows with Dr. Ayon with [facility] NSVT (nonsustained ventricular tachycardia) PCP records note, "A loop recorder was implanted due to a past episode of atrial fibrillation" > no other mention of a. fib hx per records (including available cardiac records); cardio notes loop recorder under NSVT hx History of stroke 2022- cerebellar infarction > x3 total, unknown cause, one reason for possible due to lisinopril, neck issues? resulting blindness right eye medial retinal occulsion History of non-ST elevation myocardial infarction (NSTEMI) 2013 (Per scanned records) Diastolic dysfunction Per records cardiomyopathy Per records Coronary artery disease Nonocclusive CAD per 2014 cardiac cath (20-30% ostial LAD, 10-20% LCX, 30% prox ramus, 20% RCA) Per scanned records Chronic GERD Per records Hypothyroidism Per records Benign essential hypertension Per records Hypercholesterolemia Per records Diabetes mellitus just Ozempic Surgical History History of anesthesia reaction She has a history of anesthesia complications, including episodes of decreased or stopped breathing during procedures, necessitating resuscitation. >>*Exam and advise: Patient seen at [facility] 01/05/25 at surgeon request for possible upcoming cervical spine surgery (with hardware). Surgeon requested evaluation by anesthesia prior to officially booking surgery in order to determine if anesthesia felt that patient was not a candidate to be done at [facility] from their perspective. Patient reports history of apnea and cardiac arrest while under anesthesia. Indicates that most recent periope rative cardiac rest was remote (many years ago, back surgery) and she since had Right shoulder arthroscopy done at [facility] under [place] without issue (10/01/17; anesthesia records scanned into chart). Patient has received clearance for surgery and risk assessment provided from both cardiology and PCP (elaborated below). Case reviewed with Dr. Martinez. He feels patient okay to be scheduled at [facility]. Patient made aware; surgeon's office notified. History of lumbar laminectomy Hx of surgical procedure [facility] 2006 > during a spinal tap, fell off bed and got a broken jaw/ broken back from the fall History of loop recorder removed at [facility] 01/11/25 [facility] > nothing ever discovered on it History of cardiac cath 2013 > no stents History of shoulder surgery Right (2018) History of back surgery Multiple (2006, 2008, 2008) > fusions in lumbar and thoracic History of tubal ligation 2000 History of section 1990, 2000 Hx of cholecystectomy 2000 History of appendectomy 1979 Family History Mother Diabetes Heart disease Hypertension Lung disease COPD (chronic obstructive pulmonary disease) Father Diabetes Heart disease Hypertension Colonic polyp Stroke Brother Diabetes Gallbladder disease Heart disease Hypertension Lung disease Seizures Other Myocardial infarction Denies family history of Ovarian cancer Prostate cancer Alzheimer disease Bipolar disorder Dementia Depression Kidney disease Breast cancer Lung cancer Colorectal cancer Asthma Social History (Updated 09/26/22 @ 11:40 by ANN Baptiste) Smoking Status: Current every day smoker Tobacco Type: Cigarettes Age Started Using Tobacco: 26; packs per day: 0.50; Cigarettes Per Day: 1/2 ppd > advised npo; Second Hand Exposure: No; Do You Dip or Chew Tobacco: No; Tobacco Cessation Education Requested by Patient: No Hx Alcohol Use: No Hx Substance Use: Yes Prescribed Medications: Marijuana Substance Use Type Other:: med card at HS Preferred Language: Macedonian Communication Ability: Effective Visual Impairment: Blindness Hearing Ability: Normal 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 NAD. Cooperative. HEENT: Collar in place. Decreased visual acuity in the right eye. Pupils equal and reactive. Hearing grossly intact. Anterior neck dressing in place, C/D/I. JEMIMA drain in place with about 50 cc of sanguinous material. Slight swelling of midline upper lip. Uvula is midline. No tongue swelling. Pulm: CTAB A&P. -wheezes, -rales, -rhonchi. Symmetrical chest rise. No increased work of breathing. No respiratory distress. Cardiac: RRR, -mrg. Radial pulses intact and symmetrical. Prior loop recorder site s/p removal is well-healing, surgical incision C/C/ Abdominal: Nontender, nondistended, soft. BS present. Extremities: Ankle dorsiflexion/plantarflexion 5/5, sensation to soft touch in feet intact. 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 Does have some pain radiating from surgical site to her proximal shoulder bilaterally, present prior to surgical intervention. Strength in her upper extremities is qualitatively improved compared to preoperatively. Patient Results & Data Results & Data Vital Signs (Past 12 Hours) Vital Signs Temp Pulse Pulse Resp BP Pulse Ox O2 Del Method 01/26/25 16:45 36.6 C 82 18 124/78 98 Nasal Cannula 01/26/25 16:17 93 H 16 96 Nasal Cannula 01/26/25 16:15 36.9 C 87 18 125/77 96 Nasal Cannula 01/26/25 15:45 Nasal Cannula 01/26/25 15:45 36.6 C 88 16 142/85 H 96 Nasal Cannula 01/26/25 15:25 83 15 132/61 96 Nasal Cannula 01/26/25 15:15 36.2 C L 82 15 129/82 96 Nasal Cannula 01/26/25 15:05 80 15 145/74 H 96 Nasal Cannula 01/26/25 14:55 80 15 150/73 H 96 Nasal Cannula 01/26/25 14:45 81 15 146/77 H 96 Oxymask 01/26/25 14:35 80 15 147/78 H 96 Oxymask 01/26/25 14:25 82 15 152/88 H 95 Oxymask 01/26/25 14:18 36.1 C L 89 15 159/84 H 94 Oxymask 01/26/25 08:51 36.8 C 82 20 171/90 H 96 Room Air O2 Flow Rate 01/26/25 16:45 4 01/26/25 16:17 4 01/26/25 16:15 4 01/26/25 15:45 4 01/26/25 15:45 4 01/26/25 15:25 4 01/26/25 15:15 4 01/26/25 15:05 4 01/26/25 14:55 4 01/26/25 14:45 5 01/26/25 14:35 5 01/26/25 14:25 5 01/26/25 14:18 5 01/26/25 08:51 PG Care Time/CCT Total # of Minutes Spent Total Time Spent with Patient: Total time spent is greater than 50% in coordination of care (as documented) at patient's floor/unit and/or counseling patient: Coding Level of Care Code 35734 IN/OBS CONSULT LVL 5,80M Diagnoses Myelopathy concurrent with and due to spinal stenosis of cervical region M48.02; G99.2 History of stroke Z86.73 Diabetes mellitus E11.9 Hypothyroidism E03.9 Benign essential hypertension I10 Chronic GERD K21.9 Coronary artery disease I25.10
[2025-01-26] MEDS: LANTUS PER UNIT CHARGE SC ONE (17:10)
[2025-01-26] MEDS: HYDROmorphone INJ 0.5 MG/0.5 ML SYR IV PRN (18:43)
[2025-01-26] MEDS: CLINDAMYCIN/D5W 600 MG/50 ML BAG IV SCH (19:38)
[2025-01-26] MEDS: DOCUSATE SODIUM/SENNA 50/8.6MG TAB PO SCH (20:21)
[2025-01-26] MEDS: POTASSIUM CHLORIDE CRTAB 20 MEQ TABCR PO SCH (20:21)
[2025-01-26] MEDS: GABAPENTIN 300 MG CAP PO SCH (20:21)
[2025-01-26] MEDS: LANTUS PER UNIT CHARGE SC SCH (20:40)
[2025-01-26] MEDS ORDERED: NON-FORMULARY MEDICATION (Medical Marijuana 1 EA) PO SCH (21:00)
[2025-01-26] MEDS: dexAMETHasone 8 MG in SYRINGE 0 ML IV SCH (21:04)
[2025-01-26] MEDS: HYDROmorphone INJ 1 MG/ML SYRINGE IV PRN (21:53)
[2025-01-26] MEDS: diphenhydrAMINE Capsule 25 MG CAP PO PRN (21:53)
[2025-01-27] MEDS: POLYETHYLENE (MIRALAX) 17 GM PACK PO SCH (05:23)
[2025-01-27] MEDS: LEVOTHYROXINE SODIUM 100 MCG TABLET PO SCH (05:25)
[2025-01-27 07:39] LABS: Hemoglobin A1C 8.5 % (4.5-5.6)
[2025-01-27] MEDS: ACETAMINOPHEN 500 MG TAB PO PRN (07:43)
[2025-01-27] MEDS: INSULIN HUMAN REGULAR PER UNIT 8 UNITS in SYRINGE 7.92 ML IV ONE (08:19)
[2025-01-27] MEDS: LANTUS PER UNIT CHARGE SC ONE (08:19)
--- NOTE | 2025-01-27 08:25 | Orthopedic Progress Note ---
Date of Service January 27, 2025 Assessment & Plan (1) Myelopathy concurrent with and due to spinal stenosis of cervical region: Plan: At this time I am going to maintain the JEMIMA drain another 24 hours. There is been some discussion regarding Lovenox. I am concerned that that decompression is quite extensive and she would have bleeding within the canal. Possible would like to continue with just aspirin at this time. Plan for discharge home tomorrow. Admission and Anticipated Discharge Date Admission Date: January 26, 2025 Subjective Patient's neck pain is controlled. No hoarseness. Swallowing well. Notes improvement in her arm strength and sensory. Physical Exam Physical Exam: On exam she sitting up at the side of the bed. Dressings in place. Drain JEMIMA drain is functional. Good strength testing. Sensory intact. Results & Data Vital Signs (Past 12 Hours) Vital Signs Temp Pulse Pulse Resp BP Pulse Ox O2 Del Method 01/27/25 07:44 36.8 C 88 16 132/78 94 Room Air 01/27/25 07:35 82 16 98 Room Air 01/27/25 05:15 36.8 C 97 H 16 154/78 H 95 Nasal Cannula 01/27/25 03:30 80 16 97 Nasal Cannula 01/27/25 02:57 36.4 C L 87 18 160/81 H 96 Nasal Cannula 01/27/25 01:03 36.5 C 83 18 156/78 H 95 Nasal Cannula 01/27/25 00:00 82 18 97 Nasal Cannula 01/26/25 23:00 36.5 C 88 16 145/73 H 98 Nasal Cannula 01/26/25 21:00 36.3 C L 84 16 161/83 H 98 Nasal Cannula O2 Flow Rate 01/27/25 07:44 01/27/25 07:35 01/27/25 05:15 2 01/27/25 03:30 2 01/27/25 02:57 2 01/27/25 01:03 2 01/27/25 00:00 2 01/26/25 23:00 2 01/26/25 21:00 2
[2025-01-27] MEDS: ASPIRIN 81 MG ECTAB PO SCH (09:03)
--- NOTE | 2025-01-27 09:08 | Pharmacy Report ---
Pharmacy Glycemic Short Note 2 - Date of Service January 27, 2025 - Glycemic Short BSG Results (Last 24 hours): 01/26/25 01/26/25 01/26/25 14:21 16:30 20:31 POC Glucose 201 H 279 H 244 H 01/27/25 01/27/25 07:28 07:50 POC Glucose 325 H* 360 H* OUTPATIENT ANTIDIABETIC REGIMEN: * Semaglutide 0.5 mg SC weekly HbA1c: 8.5% (01/27/25) ASSESSMENT: 01/27/25: * Significant hyperglycemia postoperatively yesterday and this morning * Of note, patient refused basal insulin that was ordered for her postop * Given blood sugar > 300 mg/dL this morning, will tighten Novolog, order basal, and give one-time IV insulin bolus * Remains on dexamethasone 6 mg IV q8h 01/26/25: * TW is a 54 year old female POD #0 s/p spinal surgery * Received 8 mg IV dexamethasone x 2 doses in OR * Ordered dexamethasone 8 mg IV q8h postoperatively * Preop blood sugar of 255 mg/dL and postop blood sugar of 201 mg/dL PLAN FOR INPATIENT GLYCEMIC CONTROL: * Basal insulin * Lantus 30 units SC daily * Lantus 0-10 units SC HS (if blood sugar above 180 mg/dL) * Bolus insulin * NovoLog per scale ACHS or Q6hrs while NPO * Goal Range: Low 110 mg/dL - High 140 mg/dL * Correction Factor: 15 mg/dL/unit * Nutritional / Prandial insulin per carb ratio of 1 unit per 5 grams CHO consumed
[2025-01-27] MEDS: LANTUS PER UNIT CHARGE SC SCH (21:26)
[2025-01-28 07:08] VITALS: BP 154/79; PULSE 72; RESP 16; TEMP 98.1; O2SAT 96
[2025-01-28] MEDS: LANTUS PER UNIT CHARGE SC ONE (08:06)
--- NOTE | 2025-01-28 08:09 | Discharge Summary ---
Date of Service January 28, 2025 Admission HPI Per Admitting Provider This is a 54-year-old female who presents with severe neck and arm symptoms. She has evidence of severe cord compression is here for urgent decompression fusion. 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 Discharge Data Allergies Allergy/AdvReac Type Severity Reaction Status Date / Time Carbapenems Allergy Intermediate Rash Verified 01/26/25 08:41 Cephalosporins Allergy Intermediate Rash Verified 01/26/25 08:41 metoprolol Allergy Intermediate Gastrointestinal Verified 01/26/25 08:41 Upset Penicillins Allergy Intermediate Hives, N/V Verified 01/26/25 08:41 Sulfa (Sulfonamide Allergy Intermediate Gastrointestinal Verified 01/26/25 08:41 Antibiotics) Upset, N/V amoxicillin Allergy Hives, N/V Verified 01/26/25 08:41 codeine Allergy Rash Verified 01/26/25 08:41 metformin Allergy Rash Verified 01/26/25 08:41 nitroglycerin Allergy Anaphylaxis, Verified 01/26/25 08:41 "Cardiac arrest" listed in [facility] records [id number] Reductase Allergy Unknown Verified 01/26/25 14:23 Inhibitor lisinopril AdvReac stroke Verified 01/26/25 08:41 losartan AdvReac Unknown Verified 01/26/25 14:23 morphine AdvReac Vomiting Verified 01/26/25 08:41 NSAIDS (Non-Steroidal AdvReac Heart Verified 01/26/25 08:41 Anti-Inflamma disease and HTN Consultations 01/26/25 14:06 Consult Hospitalist Routine Procedures Performed Operation Date: 01/26/25 10:05 Actual Procedures p C5 Corpectomy, C4-C6 Anterior Cervical Discectomy and Fusion, Spinal Cord Monitoring(Not Applicable) - Kadeem Villareal DO Ordered Studies 01/26/25 10:05 FL cervical 2-3V Routine Hospital Course (1) Myelopathy concurrent with and due to spinal stenosis of cervical region: Patient underwent anterior cervical corpectomy and fusion tolerated this well taken orthopedic for postoperative. Postoperatively she progressed appropriately. Swallowing well. No hoarseness. Arm symptoms improving. JEMIMA drain decreasing. Simply discharged home. Discharge orders and instructions found in chart for further review. Total Time Total Time Spent Total Time Spent (In Minutes): 20 minutes Discharge Plan Discharge Items Patient Disposition: Home - Self-Care Reason For Visit: Cervical Spondylosis with Myelopathy, Spinal Cord Discharge Diagnosis: Cervical spondylosis with myeloradiculopathy Activity: As commented below Non-emergency contact: Primary Care Provider Call non-emergency contact if: you have any medication questions Follow-up/Referrals: SANTI JONES [Staff Physician] - Diet: Regular Addtl Attending Provider Instructions: ACTIVITY RECOMMENDATIONS: SELF CARE INSTRUCTIONS AFTER CERVICAL FUSIONS 1. No smoking. Smoking drastically decreases the chance of a solid fusion. 2. No bending, lifting more than 5 pounds, or twisting (roll like a log when t urning in bed). 3. You may shower 3 days after surgery. Thoroughly dry wound. Do not soak in the tub. 4. Cervical collar: Must be worn at all times including sleeping. You may remove the brace only to bath, eat and if you are sitting in a recliner. 5. Please walk as much as you can for exercise. Gradually increase the distance that you walk as your endurance increases. 6. You may return to previous diet. SPECIAL CARE INSTRUCTIONS: VERY IMPORTANT TO READ AND REVIEW A. Do not take any anti-inflammatory medications (i.e. Indocin, Advil, Aspirin, Naprosyn, Aleve, Motrin, etc.) as these may inhibit the chance of a solid fusion. Tylenol is okay to take. B. Your surgical incision has been closed with a cosmetic suture under the skin that will dissolve in about 6 weeks. In 14 days, you can use a pair of clean scissors and cut the suture that is left outside of the skin at the ends of your incision. C. Complications are uncommon, but please contact us if you have any signs or symptoms of: 1. wound infection (fever higher than 102.5 degrees F, redness, separation of wound, drainage, or increasing pain from the incision) 2. blood clots in legs (pain, swelling, redness and warmth in legs) 3. urinary tract infection (fever higher than 102.5 degrees, burning upon urination or increased frequency of urination) 4. nerve problems (inability to walk on your toes or heels, numbness, loss of bowel or bladder control) 5. any other symptoms that concern you. D. Please call the office at if you have any concerns or questions about your operation or recovery. MANAGING PAIN AFTER SPINAL SURGERY 1. Narcotic medication is intended for short-term use and will be provided for surgical pain. Surgical pain usually lasts for a period of 4-6 weeks. Narcotic medication includes Percocet, Vicodin, Darvocet, Tylenol #3 or Lortab. 2. Longer-term pain is more appropriately treated with non-narcotic medication such as Tylenol ES. 3. Muscle spasm is not appropriately treated with narcotics. Muscle relaxers such as Soma, Flexeril or Skelaxin can be used along with Tylenol ES. 4. Remember that we all live with some "aches and pains". This is not unusual or uncommon after an injury or as we get older. 5. We will provide appropriate medication within the normal guidelines of their prescribed use. We will also be very cautious and aware of potential abuse and extended duration of patients' medication needs. 6. Please allow 2-3 days to process refills. Prescriptions will not be mailed but must be picked up at the office. FOLLOW UP VISIT: Keep your scheduled follow-up appointment. Any questions, please call the office at . Pending Studies at Discharge: No Stand-Alone Forms: [facility], Smoking Cessation Medications and DC Order Prescriptions: New oxycodone 5 mg tablet 5 mg PO Q6H PRN (Reason: pain) Qty: 30 0RF Rx Instructions: Oxycodone for severe pain tramadol for mild pain tramadol 50 mg tablet 50 mg PO Q6H PRN (Reason: pain, moderate) Qty: 30 0RF Continued (DME) lancets [OneTouch Delica Lancets] 30 gauge misc See Rx Instructions .Route Qty: 100 2RF Rx Instructions: As directed Test BID Dx E11.9 (DME) OneTouch Verio test strips Strip See Rx Instructions .ROUTE .MEDSUPPLY Qty: 100 5RF Rx Instructions: As directed Dx E11.9 Test BID (DME) blood-glucose meter [OneTouch Verio Flex Start] Kit See Rx Instructions .Route Qty: 1 0RF Rx Instructions: As directed Dx E11.9 Test BID potassium chloride 20 mEq tablet extended release 20 meq PO BID Qty: 180 1RF aspirin [Adult Low Dose Aspirin] 81 mg tablet,delayed release (DR/EC) 81 mg PO QAM levothyroxine [Synthroid] 100 mcg tablet 100 mcg PO QAM Ozempic 0.25 mg or 0.5 mg (2 mg/3 mL) pen injector 0.25 mg subcut WK Patient Comments: > last dose 01/14/25 Rx Instructions: 0.5 mg subcutaneously once weekly; Medical Marijuana 1 dose PO HS lisinopril 10 mg Tablet 10 mg PO QAM gabapentin 300 mg Capsule 300 mg PO TID ondansetron 4 mg Tablet,Disintegrating 4 mg PO Q8H PRN (Reason: Nausea) Discharge Orders: Discharge Order (Routine); Ordered 01/28/25 Ordered By: Kadeem Betancourt/Other Patient Handouts: High Blood Sugar (Hyperglycemia), Managing Type 2 Diabetes Admission Data Admit Date/Time: 01/26/25 13:56 Attending Provider: Kadeem Villareal Admit Provider: Kadeem Villareal Primary Care Provider: Carlos Puente Other Providers: Dino Bartholomew
== END 2025-01-28 09:00 | disposition home or self-care (01) | DRG 472 ==
LOC: ASU 08:46 → 3E 13:56